=== PATIENT | female | born 1995 | race Caucasian/White ===

== ENCOUNTER 2018-12-25 17:59 | Emergency (ER) | payer MEDICAID ==
[~2018-12-25] VITALS: Ht 154.9 cm; Wt 65.9 kg
[~2018-12-25 17:59] MED LIST: MEDR150D9 IM; NAPR-1144 PO; PANT-47 PO; RANI-648 PO; ZOF4T PO
[2018-12-25 18:07] VITALS: BP 125/72
--- NOTE | 2018-12-25 18:30 | NUR ---
Pt complains of sinus pressure and coughing up green/yellow mucus.
[2018-12-25] MEDS ORDERED: AMOX-580 PO (18:42)
[2018-12-25] MEDS ORDERED: L. R1CAP4 PO (18:49)
== END 2018-12-25 18:54 | disposition home or self-care (01) ==
LOC: ER 17:59
DX: J32.0 Chronic maxillary sinusitis (principal); K21.9 Gastro-esophageal reflux disease without esophagitis; F17.200 Nicotine dependence, unspecified, uncomplicated; Z56.0 Unemployment, unspecified; Z88.6 Allergy status to analgesic agent
CPT/HCPCS: 99283

== ENCOUNTER 2018-12-30 18:28 | Emergency (ER) | payer MEDICAID ==
[~2018-12-30] VITALS: Ht 154.9 cm; Wt 68.2 kg
[~2018-12-30 18:28] MED LIST changes: +AMOX-580 PO; +L. R1CAP4 PO
[2018-12-30] MEDS ORDERED: ONDA4TAB6 PO (19:25)
[2018-12-30] MEDS ORDERED: HYDR-4353 PO (19:25)
[2018-12-30] MEDS ORDERED: HYDROcodone/acetaminophen 10/325mg tab PO ONE (19:25)
[2018-12-30] MEDS ORDERED: ondansetron 4mg rapidly disintigrating tab PO ONE (19:25)
[2018-12-30] MEDS ORDERED: AZIT250T PO (19:25)
[2018-12-30 19:40] VITALS: BP 143/77
== END 2018-12-30 19:43 | disposition home or self-care (01) ==
LOC: ER 18:28
DX: J32.9 Chronic sinusitis, unspecified (principal); K21.9 Gastro-esophageal reflux disease without esophagitis; Z56.0 Unemployment, unspecified; Z98.890 Other specified postprocedural states; Z88.6 Allergy status to analgesic agent; Z79.899 Other long term (current) drug therapy
CPT/HCPCS: 99283

== ENCOUNTER 2019-05-16 17:34 | Emergency (ER) | payer MEDICAID ==
[~2019-05-16] VITALS: Ht 154.9 cm; Wt 69.0 kg
[~2019-05-16 17:34] MED LIST changes: -AMOX-580 PO; +ONDA4TAB6 PO
[2019-05-16 17:37] VITALS: BP 115/65
[2019-05-16] MEDS ORDERED: AMOX500C2 PO (18:06)
== END 2019-05-16 18:18 | disposition home or self-care (01) ==
LOC: ER 17:36
DX: H92.02 Otalgia, left ear (principal); R05 Cough; R09.89 Other specified symptoms and signs involving the circulatory and respiratory systems; K21.9 Gastro-esophageal reflux disease without esophagitis; Z98.890 Other specified postprocedural states; Z56.0 Unemployment, unspecified; Z88.6 Allergy status to analgesic agent; Z79.899 Other long term (current) drug therapy
CPT/HCPCS: 99283

== ENCOUNTER 2022-03-05 11:13 | Emergency (ER) | payer MEDICAID ==
[~2022-03-05] VITALS: Ht 154.9 cm; Wt 68.2 kg
[2022-03-05 11:35] VITALS: BP 108/77
[2022-03-05] MEDS ORDERED: ondansetron/PF 4mg/2ml inj IV ONE (14:25)
[2022-03-05] MEDS ORDERED: normal saline 1000ml 1,000 ML IV ONE (14:25)
[2022-03-05] MEDS ORDERED: ONDA4TAB12 PO (15:11)
== END 2022-03-05 15:28 | disposition home or self-care (01) ==
LOC: ER 11:14
DX: J06.9 Acute upper respiratory infection, unspecified (principal); R11.2 Nausea with vomiting, unspecified; F17.200 Nicotine dependence, unspecified, uncomplicated; K21.9 Gastro-esophageal reflux disease without esophagitis; Z59.00 Homelessness unspecified; F12.10 Cannabis abuse, uncomplicated
CPT/HCPCS: 96361; 96374; 99283; J2405; J7030

== ENCOUNTER 2023-07-07 13:10 | Emergency (ER) | payer MEDICAID ==
[~2023-07-07] VITALS: Ht 154.9 cm; Wt 76.2 kg
[~2023-07-07 13:10] MED LIST changes: +ONDA4TAB12 PO
[2023-07-07 13:13] VITALS: TEMP 97.8
[2023-07-07] MEDS ORDERED: iohexol 350MG/ML 100ml bottle IV ONE (14:24)
[2023-07-07 15:18] LABS: ALBUMIN 3.7 G/DL (3.4-5.0); ANION GAP 11 (8-16); BLOOD UREA NITROGEN 9 MG/DL (7-18); BUN/CREATININE RATIO 13.4 (10.0-20.0); CALCIUM 8.8 MG/DL (8.5-10.1); CHLORIDE 106 MMOL/L (99-107); CREATININE 0.67 MG/DL (0.40-0.90); GLUCOSE 94 MG/DL (70-104); POTASSIUM 3.6 MMOL/L (3.5-5.1); SODIUM 140 MMOL/L (135-145); TOTAL CARBON DIOXIDE 23.4 MMOL/L (24-32); eCRCL 95 ML/MIN; eGFR > 90 ML/MIN
[2023-07-07 16:36] VITALS: BP 126/79; PULSE 93; RESP 16; O2SAT 99
== END 2023-07-07 16:38 | disposition home or self-care (01) ==
LOC: ER 13:11
DX: R51.9 Headache, unspecified (principal); K21.9 Gastro-esophageal reflux disease without esophagitis; F12.90 Cannabis use, unspecified, uncomplicated; Z72.89 Other problems related to lifestyle; Z56.0 Unemployment, unspecified; Z88.8 Allergy status to other drugs, medicaments and biological substances; Z79.899 Other long term (current) drug therapy
CPT/HCPCS: 36415; 70496; 70498; 80048; 99285; J3490; Q9967

== ENCOUNTER 2023-10-09 16:31 | Emergency (ER) | payer MEDICAID ==
[~2023-10-09] VITALS: Ht 154.9 cm; Wt 73.8 kg
[~2023-10-09 16:31] MED LIST changes: +ONDA-243 PO; -ONDA4TAB12 PO
[2023-10-09 16:34] VITALS: BP 119/71; PULSE 99; TEMP 98.1; O2SAT 97
[2023-10-09] MEDS ORDERED: ketorolac trometh. 30mg/ml inj. IM ONE (18:10)
[2023-10-09] MEDS: cyclobenzaprine 10mg tablet PO ONE (18:41)
[2023-10-09] MEDS: ketorolac tromethamine 15mg/ml inj. IM ONE (18:41)
[2023-10-09] MEDS: dexamethasone sod phosphate 10mg/ml inj IM STA (18:41)
[2023-10-09] MEDS ORDERED: LIDO700A32 TOP (18:43)
[2023-10-09] MEDS ORDERED: CYCL-1 PO (18:43)
[2023-10-09 18:54] VITALS: RESP 18
== END 2023-10-09 18:55 | disposition home or self-care (01) ==
LOC: ER 16:31
DX: S16.1XXA Strain of muscle, fascia and tendon at neck level, initial encounter (principal); K21.9 Gastro-esophageal reflux disease without esophagitis; F12.90 Cannabis use, unspecified, uncomplicated; Z79.899 Other long term (current) drug therapy; X58.XXXA Exposure to other specified factors, initial encounter; Y93.89 Activity, other specified; Y92.89 Other specified places as the place of occurrence of the external cause; Y99.8 Other external cause status
CPT/HCPCS: 72050; 96372; 99284; J1100; J1885

== ENCOUNTER 2024-11-19 12:22 | Emergency (ER) | payer MEDICAID ==
[~2024-11-19] VITALS: Ht 154.9 cm; Wt 72.0 kg
[~2024-11-19 12:22] MED LIST changes: +CYCL-1 PO; +LIDO-52 TOP
[2024-11-19 12:29] VITALS: BP 127/77; PULSE 87; RESP 16; TEMP 98.4; O2SAT 99
--- NOTE | 2024-11-19 14:55 | RADIOLOGY REPORT ---
Indication: LT.HIP PAIN Technique: DI HIP UNILATERAL 2 VIEWSHIP 2VWS Comparison: None FINDINGS/IMPRESSION: No radiographic evidence for acute fracture or dislocation. Left SI fixation screw. Mild degenerate changes bilateral hips. Mild bilateral sacroiliac degenerative joint disease.
[2024-11-19 15:04] LABS: MEAN PLATELET VOLUME 8.5 FL (7.4-10.4); RED CELL DISTRIBUTION WIDTH 14.1 % (11.5-14.5)
[2024-11-19 15:12] LABS: CREATININE 0.62 MG/DL (0.40-0.90); TOTAL CARBON DIOXIDE 24.0 MMOL/L (24-32); eCRCL 101 ML/MIN; eGFR > 90 ML/MIN
[2024-11-19] MEDS ORDERED: MELO-102 PO (15:20)
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
[2024-11-19] MEDS: ketorolac trometh 30MG/ML vial 30 MG/ML VIAL IM STA (15:28)
== END 2024-11-19 15:34 | disposition home or self-care (01) ==
LOC: ER 12:23
DX: M16.12 Unilateral primary osteoarthritis, left hip (principal); M25.552 Pain in left hip; K21.9 Gastro-esophageal reflux disease without esophagitis; Z79.899 Other long term (current) drug therapy; Z56.0 Unemployment, unspecified
CPT/HCPCS: 36415; 73502; 80048; 85025; 96372; 99284; J1885

== ENCOUNTER 2025-01-03 12:55 | Day surgery (SDC) | payer MEDICAID ==
[2025-01-03] VITALS (8 sets, daily range): BP systolic 105–118; BP diastolic 63–73; PULSE 67–80; RESP 11–20; TEMP 97.7; O2SAT 95–100
[~2025-01-03] VITALS: Ht 154.9 cm; Wt 77.1 kg
[~2025-01-03 12:55] MED LIST changes: +CELE-127 PO; -CYCL-1 PO; +CYCL-920 PO; -L. R1CAP4 PO; -LIDO-52 TOP; +LIDOcaine 2% Viscous 15ml cup MM ONE; -MEDR150D9 IM; -NAPR-1144 PO; +OMEP20CA16 PO; -ONDA-243 PO; -ONDA4TAB6 PO; -PANT-47 PO; -RANI-648 PO; -ZOF4T PO; +ringers solution, lacted 1,000 ML IV SCH
[2025-01-03] MEDS ORDERED: fentaNYL/PF 50MCG/1 ML 2ML syringe ONE (15:25)
[2025-01-03] MEDS ORDERED: MIDAZolam 1 MG/ML 5ML VIAL ONE (15:26)
[2025-01-03] MEDS ORDERED: propofol 10mg/ml 20ml vial IV ONE (15:31)
--- NOTE | 2025-01-08 07:04 | PATHOLOGY REPORT ---
[facility] [address] [place] [address] SURGICAL PATHOLOGY REPORT CaseNumber: [id number] Surgeon:Eric Paulson M.D. CLINICAL INFORMATION CLINICAL INFORMATION: Heartburn and suspected esophageal reflux. DIAGNOSIS DIAGNOSIS: GASTRIC ANTRUM, BIOPSIES X 3 - NO SIGNIFICANT INFLAMMATION, EDEMA, OR VASCULAR CONGESTION - NO INTESTINAL METAPLASIA BY PAS STAINING - NO DYSPLASIA OR MALIGNANCY - NO H. PYLORI ORGANISMS ARE HIGHLIGHTED BY IMMUNOHISTOCHEMISTRY MICROSCOPIC DESCRIPTION MICROSCOPIC DESCRIPTION: Reviewed is a single H&E-stained slide showing serial sections and levels of three polypoid fragments of gastric antral-type mucosa. There is no significant inflammation, edema, or vascular congestion. There is no intestinal metaplasia by PAS staining. There are no dysplastic or neoplastic features. Also, no H. pylori organisms are highlighted by immunohistochemistry. GROSS DESCRIPTION GROSS DESCRIPTION: Received in a container of formalin labeled with the patient's name, number, and "gastric antrum BX"are three pieces of chery-sheehan tissue 0.2-0.5 x 0.1 x 0.1 cm. The specimen is entirely submitted as A1. The time at which the specimen was removed was 153. The time at which the specimen was placed in formalin was 153. Electronically signed by: Perry Lara M.D. 01/08/2025 4:15:00 AM
== END 2025-01-03 16:44 | disposition home or self-care (01) ==
LOC: GI LAB 12:55
PROVIDERS: ATTEND Internal Medicine Gastroenterology
DX: R12 Heartburn (principal); K21.00 Gastro-esophageal reflux disease with esophagitis, without bleeding; K31.89 Other diseases of stomach and duodenum; E66.3 Overweight; F17.210 Nicotine dependence, cigarettes, uncomplicated; Z79.899 Other long term (current) drug therapy; Z98.890 Other specified postprocedural states; Z68.32 Body mass index [BMI] 32.0-32.9, adult; Z88.8 Allergy status to other drugs, medicaments and biological substances
CPT/HCPCS: 43239; J2250; J2704; J3010; J7120; Z7512; A4618; A4620; A6449; A7000